=== PATIENT | male | born 1965 ===

== ENCOUNTER 2023-07-03 14:02 | Outpatient (OUT) | payer SELFPAY | END 2023-07-03 14:03 | disposition home or self-care (01) | LOC: WC 14:08 | PROVIDERS: PCP Podiatrist Foot & Ankle Surgery; Visit Provider Podiatrist Foot & Ankle Surgery | DX: E11.622 Type 2 diabetes mellitus with other skin ulcer (principal); L97.322 Non-pressure chronic ulcer of left ankle with fat layer exposed; L97.921 Non-pressure chronic ulcer of unspecified part of left lower leg limited to breakdown of skin ==